=== PATIENT | female | born 1990 | race African-American/Black ===

== ENCOUNTER 2022-06-05 09:48 | Outpatient (CLI) | payer OTHER | END 2022-06-05 11:01 | disposition home or self-care (01) | LOC: RAD 09:48 | PROVIDERS: ATTEND Obstetrics & Gynecology | DX: R10.2 Pelvic and perineal pain (principal); N91.2 Amenorrhea, unspecified; N94.0 Mittelschmerz; N94.89 Other specified conditions associated with female genital organs and menstrual cycle ==

== ENCOUNTER 2023-02-08 11:06 | Emergency (ER) | payer OTHER ==
[~2023-02-08] VITALS: Ht 167.6 cm; Wt 85.7 kg
== END 2023-02-08 14:57 | disposition home or self-care (01) ==
LOC: ER 11:06
DX: J32.9 Chronic sinusitis, unspecified (principal)